=== PATIENT | female | born 1990 | race Caucasian/White ===

== ENCOUNTER 2018-06-07 11:56 | Emergency (ER) | payer MEDICAID ==
--- NOTE | 2018-06-07 13:23 | EDPHY ---
H & P Stated Complaint: Blurry vision Time Seen by Provider: 06/07/18 13:22 HPI/ROS: CHIEF COMPLAINT: Blurry vision HISTORY OF PRESENT ILLNESS: The patient presents the ED with complaints of blurry vision for the past 4 days. She is status post left knee arthroscopy which was performed uneventfully 4 days ago. The patient did notice a scopolamine patch behind her right ear which she removed approximately 36 hr ago. Since that time her visual acuity has improved however not returned to normal. The patient denies any history of fall or trauma. She describes blurry near vision. She denies additional acute complaints. REVIEW OF SYSTEMS: A comprehensive 10 point review of systems is otherwise negative aside from elements mentioned in the history of present illness. Source: Patient Exam Limitations: No limitations - Medical/Surgical History Hx Asthma: No Hx Chronic Respiratory Disease: No Hx Diabetes: No Hx Cardiac Disease: No Hx Renal Disease: No Hx Cirrhosis: No Hx Alcoholism: No Hx HIV/AIDS: No Hx Splenectomy or Spleen Trauma: No Other PMH: orthoscopic surg R knee, R foot surg - Social History Smoking Status: Never smoked - Physical Exam Exam: Visual Acuity: noted from Nurse's notes. Pupils: equal round and reactive to light EOMI Skin: no proptosis, no periorbital erythema or swelling, no vesicles Conjunctivae: not injected, no discharge Anterior chamber: normal, no hyphema or hypopyon Constitutional: Initial Vital Signs Temperature (C) 36.6 C 06/07/18 12:07 Heart Rate 68 06/07/18 12:07 Respiratory Rate 16 06/07/18 12:07 Blood Pressure 123/77 H 06/07/18 12:07 O2 Sat (%) 96 06/07/18 12:07 O2 Delivery Mode Room Air Allergies/Adverse Reactions: gluten Allergy (Verified 06/07/18 12:11) Home Medications: Medication Instructions Recorded Control 06/07/18 Medical Decision Making ED Course/Re-evaluation: The patient presents to the ED with blurry vision improving in the setting of a recent scopolamine patch. The patient is noted to be neurologically intact. At this point time I suspect the etiology is secondary to her scopolamine patch usage. The patient states she has had improvement of her symptoms are ready. She was referred to the emergency department by her orthopedic surgeon. At this point time the patient is comfortable going home and following up with Ophthalmology tomorrow. She is given the number of our on-call kitchen aide. She is instructed to return to the ED for markedly worsening visual complaints, severe headache, numbness, weakness or other concerns. Departure - Departure Disposition: Home, Routine, Self-Care Clinical Impression: Blurry vision Condition: Good Instructions: Blurred Vision (ED) Additional Instructions: 1. I suspected blurry vision is secondary to the scopolamine patch. 2. Please contact the kitchen aide you have been referred to if you continue to experience any symptoms of blurry vision tomorrow morning. 3. Please return to the ED for severe headache, numbness, weakness or other concerns. Referrals: Sam De La O MD [Medical Doctor] - As per Instructions
[2018-06-07 13:44] VITALS: BP 118/74
== END 2018-06-07 13:42 | disposition home or self-care (01) ==
DX: H53.8 Other visual disturbances (principal)